=== PATIENT | female | born 1940 | race Caucasian/White ===

== ENCOUNTER 2020-05-23 07:45 | Inpatient (IN) | payer MEDICARE, OTHER ==
[~2020-05-23] VITALS: Ht 149.9 cm; Wt 58.5 kg
[2020-05-23 07:47] VITALS: BP 126/46
[2020-05-23] MEDS ORDERED: PREVACID30 MG PO (08:07)
[2020-05-23] MEDS ORDERED: PAROXETINE HCL20 MG PO (08:07)
[2020-05-23] MEDS ORDERED: METFORMIN HCL500 M3 PO (08:08)
[2020-05-23] MEDS ORDERED: SUPER THERAVIT1 EACH PO (08:08)
[2020-05-23] MEDS ORDERED: NORVASC 2.5 MG2.5 M1 PO (08:08)
[2020-05-23] MEDS ORDERED: COQ-1030 MG PO (08:09)
[2020-05-23] MEDS ORDERED: LIPITOR40 MG PO (08:09)
[2020-05-23] MEDS ORDERED: XANAX1 MG PO (08:11)
[2020-05-23] MEDS ORDERED: ASA81BEC PO (08:11)
[2020-05-23] MEDS ORDERED: MAGNESIUM250 M1 PO (08:11)
[2020-05-23] MEDS ORDERED: FISH OIL 1,001000 M2 PO (08:11)
[2020-05-23] MEDS ORDERED: VIT D PO (08:11)
[2020-05-23 08:12] LABS: INFLUENZA A ANTIGEN Negative (Negative); INFLUENZA B ANTIGEN Negative (Negative)
[2020-05-23] MEDS ORDERED: B12 ACTIVE1000 MCG PO (08:12)
[2020-05-23] MEDS ORDERED: VIT E PO (08:12)
[2020-05-23 08:22] LABS: ABSOLUTE BASOPHILS 0.1 thou/uL (0.0-0.2); ABSOLUTE EOSINOPHILS 0.1 thou/uL (0.0-0.7); ABSOLUTE LYMPHOCYTES 2.6 thou/uL (0.8-5.3); ABSOLUTE NEUTROPHILS 9.8 thou/uL (1.6-8.1); BASOPHILS 0.6 %; EOSINOPHILS 0.7 %; HEMATOCRIT 38.8 % (37.0-47.0); HEMOGLOBIN 12.6 gm/dL (12.0-15.0); MCH 26.3 pg (26.0-34.0); MCHC 32.4 g/dL (28.0-37.0); MCV 81.1 fL (80.0-100.0); MONOCYTES 13.5 %; MPV 9.2 fl. (7.2-11.1); NUCLEATED RBCS 0 /100WBC; PLATELET COUNT* 275 thou/uL (150-400); POLYS 67.2 %; RBC 4.79 mil/uL (4.20-5.00); RDW-CV 19.1 % (10.5-14.5); WBC 14.6 thou/uL (4.0-11.0)
[2020-05-23 08:35] LABS: CALCIUM 9.7 mg/dL (8.5-10.1); CREATININE 1.1 mg/dL (0.6-1.3); POTASSIUM 3.6 mmol/L (3.5-5.1)
[2020-05-23 08:39] LABS: APTT 30.7 Seconds (25.0-31.3); INR 1.1; PROTIME 11.5 Seconds (9.20-11.50)
[2020-05-23 08:46] LABS: ALBUMIN 2.7 g/dL (3.4-5.0); TOTAL BILIRUBIN 3.6 mg/dL (<0.1-1.0); TOTAL PROTEIN 7.5 g/dL (6.4-8.2)
[2020-05-23 09:58] LABS: URINE BLOOD 1+ (Negative); URINE CLARITY CLEAR; URINE COLOR YELLOW; URINE GLUCOSE-RANDOM NEGATIVE (Negative); URINE KETONES NEGATIVE (Negative); URINE PROTEIN NEGATIVE (Negative); URINE SPECIFIC GRAVITY 1.015 (1.005-1.030); URINE UROBILINOGEN 0.2 E.U./dl (0.2-1.0)
[2020-05-23 10:00] LABS: ICTOTEST (BILI CONFIRMATORY) Negative (Negative); URINE BILIRUBIN 1+ (Negative); URINE LEUKOCYTES-REFLEX 3+ (Negative); URINE NITRITE-REFLEX POSITIVE (Negative)
[2020-05-23 10:03] LABS: BACTERIA-REFLEX >30 Many /HPF (None Seen); CASTS None Seen /LPF (None Seen); CRYSTALS None Seen /LPF (None Seen); MUCUS None Seen strn/LPF (None Seen); SQUAMOUS 0-3 Few /LPF (0-3); URINE RBC 3-10 Few /HPF (0-2); URINE WBC-REFLEX >25 Many /HPF (0-5)
--- NOTE | 2020-05-23 13:23 | NUR ---
MRI CHECVKLIST COMPLETE
--- NOTE | 2020-05-23 13:27 | EKG ---
[place] [address] ELECTROCARDIOGRAM REPORT Name: SHAWN LEYVA Room: [place] [address] ADM IN .R.#: [id number] Admission: 05/23/20 Attend Phys: Demarco Collazo Discharge: Date of : 36 Date of Service: 05/23/20 0757 Report #: [id number] THIS REPORT FOR: //name// [facility] ED Test Date: 2020-05-23 Test Time: 07:57:32 Pat Name: SHAWN LEYVA Department: Room: [facility] Gender: F It Risk Advisor: TDS : 1940 Requested By: Otoniel Watt Order Number: [id number] MD: Angelo Winter Measurements Intervals [place] Rate: 87 P: -18 VT: 204 QRS: 3 QRSD: 77 T: 80 QT: 368 QTc: 443 Interpretive Statements Sinus rhythm Abnormal R-wave progression, early transition Artifact no previous ECG available for comparison Consider repeat the electrocardiogram m Electronically Signed On 05-23-2020 13:27:22 LINE HELPER by Angelo Winter [email or web address] <ELECTRONICALLY SIGNED> By: Angelo Winter MD, FACC 05/23/20 1327 [id number] [id number] Angelo Winter MD, FAC /EPI
[2020-05-23 15:30] VITALS: BP 134/57
[2020-05-23 18:17] VITALS: BP 135/60
[2020-05-23 20:00] VITALS: BP 145/60
[2020-05-24 05:18] LABS: ABSOLUTE LYMPHOCYTES 1.2 thou/uL (0.8-5.3); ABSOLUTE MONOCYTES 1.1 thou/uL (0.0-1.2); ABSOLUTE NEUTROPHILS 10.2 thou/uL (1.6-8.1); BASOPHILS 0.2 %; HEMATOCRIT 33.8 % (37.0-47.0); HEMOGLOBIN 10.9 gm/dL (12.0-15.0); LYMPHOCYTES 9.4 %; MCH 26.7 pg (26.0-34.0); MCHC 32.4 g/dL (28.0-37.0); MCV 82.4 fL (80.0-100.0); MONOCYTES 8.5 %; MPV 10.4 fl. (7.2-11.1); NUCLEATED RBCS 0 /100WBC; PLATELET COUNT* 218 thou/uL (150-400); POLYS 81.9 %; RDW-CV 18.8 % (10.5-14.5); WBC 12.5 thou/uL (4.0-11.0)
[2020-05-24 05:57] LABS: ALBUMIN 2.2 g/dL (3.4-5.0); CALCIUM 8.5 mg/dL (8.5-10.1); CREATININE 0.9 mg/dL (0.6-1.3); DIRECT BILIRUBIN 0.5 mg/dL (<0.1-0.3); POTASSIUM 3.9 mmol/L (3.5-5.1); TOTAL BILIRUBIN 0.8 mg/dL (<0.1-1.0); TOTAL PROTEIN 6.8 g/dL (6.4-8.2)
--- NOTE | 2020-05-24 07:46 | NUR ---
ASSUMED PT CARE AT APPROX 1930. PT IS AWAKE AND ORIENTED X4. PT IS NOT IN DISTRESS, DENIES PAIN/DISCOMFORT. ADMISSION ASSESSMENT DONE AND CHARTED PT IS NPO FOR ERCP IN AM. NO ACUTE CHANGES THROUGHOUT THIS SHIFT. CALL LIGHT WITHIN REACH. HOURLY ROUNDING DONE FOR PT SAFETY. HIGH FALL PRECAUTIONS IN PLACE.
[2020-05-24 08:00] VITALS: BP 140/57
--- NOTE | 2020-05-24 12:00 | NUR ---
PT BACK FROM ERCP. DENIES PAIN N/V. TOLERATING PO WELL. DTR AT BS
--- NOTE | 2020-05-24 13:08 | NUR ---
Pt out of room having ERCP when CM went to assess. CM spoke with Pt's dtr. Pt moved in with dtr in December post a fall, plan is for Pt to return to dtr's [place]. Pt had HH post fall, but HH stopped coming d/t Pt's WBS, Pt is currently 50% WB and does not see Ortho again until July. Per dtr, she has their home set up to be able to care for Pt adequately. Pt has a walker, wc and bedside commode. Pt's other dtr is planning to move in to help with Pt's cares. CM to discuss completing a DPOA, per dtr, she would want her brother to be the DPOA, dtr does not feel like she could make the decision to withdraw care, if and when that time comes. Dtr does not want HH at [place]. Following
[2020-05-24] MEDS ORDERED: CEFDINIR300 MG PO (15:02)
[2020-05-24 15:19] VITALS: BP 140/57
[2020-05-24 15:21] VITALS: BP 140/57
--- NOTE | 2020-05-25 14:05 | CON ---
[address] [address] CONSULTATION Name: SHAWN LEYVA Eladio Room: [address] IN .R.#: [id number] Admission: 05/23/20 Attend Phys: Neptali Cameron Discharge: 05/24/20 Date of : 36 Report #: [id number] THIS REPORT FOR: //name// cc: Alvino Chang MD, John E. MD ~ DATE OF SERVICE: 05/23/2020 HISTORY OF PRESENT ILLNESS: This is a pleasant 79-year-old female with past medical history significant for hypertension, hyperlipidemia, gastroesophageal reflux disease, who is presenting for evaluation of right upper quadrant pain. The patient reports she has had intermittent right upper quadrant pain for the last 4-5 months. The pain is localized, sharp and stabbing in nature, radiates to the back. There is no specific relation to food or bowel movements. The patient reports about a 20-pound weight loss over this time. Reports associated nausea and vomiting. She denies any hematemesis or hematochezia. She denies ever having an EGD or colonoscopy in the past. PAST MEDICAL HISTORY: Hypertension, hyperlipidemia, gastroesophageal reflux disease. PAST SURGICAL HISTORY: The patient has a history of left femur fracture in 12/2019, hysterectomy, multiple hip surgeries. SOCIAL HISTORY: The patient quit smoking more than 20 years back. Denies alcohol or recreational drug use. FAMILY HISTORY: No family history of colon cancer or [place]-related neoplasia. Son was diagnosed with esophageal adenocarcinoma. PHYSICAL EXAMINATION: VITAL SIGNS: Temperature 36.6, pulse rate 78, respirations 16, blood pressure ____, pulse ox 94% on room air. GENERAL: The patient is alert, awake, oriented x 3. HEENT: Pupils are equal, round, reactive to light and accommodation. Mucous membranes are moist. There is no congestion. LUNGS: Clear to auscultation bilaterally. CARDIOVASCULAR: Rate and rhythm regular, S1, S2 present. ABDOMEN: Soft. There is no distention, guarding or rigidity. EXTREMITIES: Warm, well perfused. There is no edema. SKIN: Warm and dry. LABORATORY DATA: Hemoglobin 12.6, hematocrit 38.8, platelet count 275, WBC count 14.6, INR 1.1. Sodium 139, potassium 3.6, chloride 103, bicarbonate 29, BUN 18, creatinine 1.1, total bilirubin 3.6, AST 136, ALT 121, alkaline phosphatase 413. MRCP, 1.5 x 1.4 cm rounded soft tissue filling defect within the distal common bile duct corresponding to the [place] [address] CONSULTATION Name: PO LEYVAPHAM Hendricks Room: [address]#: [id number] Admission: 05/23/20 Attend Phys: Neptali Cameron Discharge: 05/24/20 Date of : 36 Report #: [id number] There appears to be ____ common bile duct, ____ pancreas. Findings are most suggestive of intramural lesion, suggests tumefactive sludge, choledocholithiasis. ERCP recommended for further evaluation. ASSESSMENT AND PLAN: Pleasant 79-year-old female with past medical history of diabetes, hypertension, hyperlipidemia, is presenting with intermittent right upper quadrant pain, 20-pound weight loss. The patient noted to have obstructive jaundice with an intramural lesion in the bile duct with biliary ductal dilation. We will proceed with ERCP tomorrow and make further recommendations based on results of ERCP. Thank you for this consultation. <ELECTRONICALLY SIGNED> By: Shawn Stovall MD 05/25/20 1405 [id number] [id number] Stovall MD /nt
[2020-05-25 17:07] LABS: CA 125 9.5 U/mL (0.0-38.1)
== END 2020-05-24 17:00 | disposition home or self-care (01) | DRG 444 ==
LOC: M.ERS 07:45 → M.2W 11:20 → M.TBA-ER 11:20 → M.2W 18:33
PROVIDERS: Family Medicine; Surgery; ADMIT Internal Medicine; ATTEND Internal Medicine
PROC: 0FC98ZZ Extirpation of Matter from Common Bile Duct, Via Natural or Artificial Opening Endoscopic (ICD-10-PCS; principal; 2020-05-23)
DX: K80.51 Calculus of bile duct without cholangitis or cholecystitis with obstruction (principal); R65.11 Systemic inflammatory response syndrome (SIRS) of non-infectious origin with acute organ dysfunction; E43 Unspecified severe protein-calorie malnutrition; N39.0 Urinary tract infection, site not specified; E11.9 Type 2 diabetes mellitus without complications; I10 Essential (primary) hypertension; E80.6 Other disorders of bilirubin metabolism; E78.5 Hyperlipidemia, unspecified; M19.90 Unspecified osteoarthritis, unspecified site; K21.9 Gastro-esophageal reflux disease without esophagitis; F41.9 Anxiety disorder, unspecified; Z96.649 Presence of unspecified artificial hip joint; N20.0 Calculus of kidney; Z87.891 Personal history of nicotine dependence; Z90.49 Acquired absence of other specified parts of digestive tract; Z90.710 Acquired absence of both cervix and uterus; Z88.6 Allergy status to analgesic agent; Z88.8 Allergy status to other drugs, medicaments and biological substances; Z87.81 Personal history of (healed) traumatic fracture; Z20.828 Contact with and (suspected) exposure to other viral communicable diseases; Z68.26 Body mass index [BMI] 26.0-26.9, adult

== ENCOUNTER → 2021-05-10 | Outpatient (CLI) | payer MEDICARE ==
[~2021-05-10] MED LIST: ASA81BEC PO; B12 ACTIVE1000 MCG PO; CEFDINIR300 MG PO; COQ-1030 MG PO; FISH OIL 1,001000 M2 PO; LIPITOR40 MG PO; MAGNESIUM250 M1 PO; METFORMIN HCL500 M3 PO; NORVASC 2.5 MG2.5 M1 PO; PAROXETINE HCL20 MG PO; PREVACID30 MG PO; SUPER THERAVIT1 EACH PO; VIT D PO; VIT E PO; XANAX1 MG PO
[2021-05-10 12:14] LABS: ABSOLUTE EOSINOPHILS 0.2 thou/uL (0.0-0.7); ABSOLUTE LYMPHOCYTES 2.9 thou/uL (0.8-5.3); ABSOLUTE NEUTROPHILS 5.8 thou/uL (1.6-8.1); BASOPHILS 0.3 %; EOSINOPHILS 2.3 %; HEMATOCRIT 41.1 % (37.0-47.0); HEMOGLOBIN 13.4 gm/dL (12.0-15.0); MCH 28.3 pg (26.0-34.0); MCHC 32.7 g/dL (28.0-37.0); MCV 86.6 fL (80.0-100.0); MONOCYTES 10.1 %; MPV 8.4 fl. (7.2-11.1); NUCLEATED RBCS 0 /100WBC; PLATELET COUNT* 254 thou/uL (150-400); POLYS 58.3 %; RBC 4.75 mil/uL (4.20-5.00); RDW-CV 15.3 % (10.5-14.5); WBC 9.9 thou/uL (4.0-11.0)
[2021-05-10 12:39] LABS: ALBUMIN 3.2 g/dL (3.4-5.0); ALKALINE PHOSPHATASE 112 U/L (46-116); ANION GAP 10 mmol/L (7-16); BUN 26 mg/dL (7-18); CALCIUM 9.1 mg/dL (8.5-10.1); CHLORIDE 107 mmol/L (98-107); CHOLESTEROL 136 mg/dL (<200); CO2 27 mmol/L (21-32); CREATININE 1.4 mg/dL (0.6-1.3); GLUCOSE 116 mg/dL (70-99); HDL CHOLESTEROL 62 mg/dL (>40); LDL CHOLESTEROL 56 mg/dL (<100); POTASSIUM 4.1 mmol/L (3.5-5.1); SGOT 21 U/L (15-37); SGPT 19 U/L (30-65); SODIUM 144 mmol/L (136-145); TC:HDL 2.2 Ratio (Not establshd); TOTAL BILIRUBIN 0.5 mg/dL (<0.1-1.0); TOTAL PROTEIN 7.5 g/dL (6.4-8.2); TRIGLYCERIDE 93 mg/dL (<150); VLDL 19 mg/dL (<40)
[2021-05-10 12:46] LABS: SERUM ASSESSMENT Clear
[2021-05-11 07:08] LABS: GLYCOHEMOGLOBIN (HGB A1C) 6.2 % (4.8-5.6)
== END ==
LOC: M.LAB 11:46
PROVIDERS: ATTEND Family Medicine
DX: Z23 Encounter for immunization (principal); E11.9 Type 2 diabetes mellitus without complications; E78.2 Mixed hyperlipidemia; F41.9 Anxiety disorder, unspecified; F51.04 Psychophysiologic insomnia

== ENCOUNTER → 2021-08-13 | Outpatient (CLI) | payer BC | LOC: M.LAB 12:18 | PROVIDERS: ATTEND Family Medicine | DX: E11.9 Type 2 diabetes mellitus without complications (principal) ==